=== PATIENT | female | born 1940 | race Caucasian/White ===

== ENCOUNTER 2018-10-30 10:48 | Outpatient (REF) | payer MEDICARE, SELFPAY ==
[2018-10-30 11:12] LABS: Abs Immature Grans 0.02 k/cumm (0.0-0.09); Absolute Basophil Count 0.01 k/cumm (0.0-0.2); Absolute Eosinophil Count 0.21 k/cumm (0.0-0.7); Absolute Lymphocyte Count 2.17 k/cumm (1.2-3.4); Absolute Monocyte Count 0.19 k/cumm (0.11-0.7); Absolute Neutrophil Count 3.49 k/cumm (1.2-6.7); Basophils % 0.2; Eosinophils % 3.4; HCT 29.3 % (36.0-46.0); HGB 8.6 g/dL (12.0-15.5); Immature Grans % 0.3; Lymphocytes % 35.6; Mean Corp. HGB Concentration 29.4 g/dL (32.0-36.0); Mean Corpuscular Hemoglobin 25.1 pg (27.0-33.0); Mean Corpuscular Volume 85.4 fL (80-95); Mean Platelet Volume 8.9 fL (8.0-11.0); Monocytes % 3.1; Neutrophils % 57.4; Platelet Count 348 x1000/uL (130-400); RBC 3.43 m/cumm (4.00-5.20); RBC Distribution Width 16.5 % (11.7-14.6); White Blood Cell Count 6.09 k/cumm (4.4-10.8)
[2018-10-30 11:47] LABS: Anisocytosis 1+; Diff Comment RBC Morph Reviewed
== END 2018-10-30 11:08 ==
LOC: LBN 10:48
PROVIDERS: PCP Nurse Practitioner Family; Visit Provider Nurse Practitioner Family
DX: D64.9 Anemia, unspecified (principal)
CPT/HCPCS: 85025